=== PATIENT | female | born 1960 | race Caucasian/White ===

== ENCOUNTER 2018-04-25 16:36 | Emergency (ER) | payer OTHER ==
[~2018-04-25] VITALS: Ht 170.2 cm; Wt 59.0 kg
[~2018-04-25 16:36] MED LIST: CIPRO500 MG PO; POTASSIUM CHLO20 ME1 PO; SULFAMETHOXAZOL1 TA4 PO
[2018-04-25 16:56] VITALS: Ht 170.2 cm; Wt 59.0 kg
[2018-04-25 18:03] LABS: AMPHETAMINE QUAL UR NONE DETECTED (See below)
[2018-04-25 19:29] LABS: BASOPHIL % 0.2 % (0-2); PLATELET COUNT 227 x10^3mcL (130-400); RED CELL DISTRIBUTION WIDTH 14.1 % (11.5-14.5)
[2018-04-25 19:38] LABS: CARBON DIOXIDE 30.2 mmol/L (21-32); CHLORIDE SERUM 101 mmol/L (98-107); CREATININE SERUM 0.8 mg/dL (0.6-1.0); GFR1 > 60 mL/min; GLUCOSE SERUM 123 mg/dL (74-106); POTASSIUM SERUM 3.2 mmol/L (3.5-5.1); SODIUM SERUM 139 mmol/L (136-145)
[2018-04-25 19:42] LABS: ALBUMIN 3.8 g/dL (3.4-5.0); ALKALINE PHOSPHATASE 93 U/L (46-116); ALT/SGPT 18 U/L (14-59); AST/SGOT 19 U/L (15-37); BILIRUBIN TOTAL 0.32 mg/dL (0.20-1.00); TOTAL PROTEIN, SERUM 7.8 g/dL (6.4-8.2)
[2018-04-25 20:23] VITALS: BP 141/86
== END 2018-04-25 20:23 | disposition left against medical advice (07) ==
LOC: ED 16:36
PROVIDERS: Emergency Medicine
DX: E87.6 Hypokalemia (principal); R07.89 Other chest pain; R10.9 Unspecified abdominal pain; I10 Essential (primary) hypertension; Z91.040 Latex allergy status; Z88.8 Allergy status to other drugs, medicaments and biological substances
CPT/HCPCS: 36415; 83880; 85378; Q0092